=== PATIENT | male | born 2000 | race Native Hawaiian/Other Pacific Islander ===

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

== ENCOUNTER 2020-03-12 13:50 | Outpatient (CLI) | payer OTHER | END 2020-03-12 20:33 | disposition home or self-care (01) | LOC: CT 13:50 | DX: R10.9 Unspecified abdominal pain (principal) | CPT/HCPCS: Q9963 ==